=== PATIENT | female | born 1955 | race African-American/Black ===

== ENCOUNTER → 2017-07-03 | Outpatient (CLI) | payer OTHER ==
[~2017-07-03] MED LIST: ACET325S8 PR; ALL220TA PO; PRIL20TA2 PO; TAB-TAB PO
--- NOTE | 2017-07-03 12:16 | RADRPT ---
EXAM DATE/TIME: 07/03/2017 10:46 [place] COMPARISON: No previous studies available for comparison. INDICATIONS : Trouble swallowing dry foods and pill capsules. Sensation of getting stuck then it causes the patient to cough. FLUORO TIME: 2.3 minutes IMAGE COUNT: 5 CONTRAST: Dose as prescribed by speech pathologist. MEDICAL HISTORY : None. SURGICAL HISTORY : None. ENCOUNTER: Initial ACUITY: 2 months PAIN SCORE: 0/10 LOCATION: Bilateral Esophagus FINDINGS: A modified barium swallow was performed with speech pathology. Patient was given a variety of liquids to swallow and a barium pill. The patient initiated swallowing normally and there is coordinated pharyngeal constriction. There ar e prominent anterior osteophytes/paravertebral ossification from C3 down to C7 with the largest osteo phytes C5-7. No evidence of aspiration or laryngeal penetration. There is incomplete emptying of th e esophagus and several episodes of esophago-esophageal reflux are observed. As the various boluses pass by the osteophytes, the patient is aware of fullness. The patient was also observed during swal lowing of a pill. The pill remains in the distal esophagus for approximately 5 seconds before passin g into the stomach. After the pill passes in the stomach, the patient states she felt persistence of the pill. For a full detailed report, see report by the speech pathologist. CONCLUSION: 1. Normal coordination and mechanism of pharyngeal constriction. 2. 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 3. Multiple episodes of esophago-esophageal reflux. Bakari Denson MD on July 03, 2017 at 12:11 Board Certified Radiologist. This report was verified electronically.
== END ==
LOC: HRAD 10:26
PROVIDERS: ATTEND Internal Medicine Gastroenterology
DX: R13.10 Dysphagia, unspecified (principal)
CPT/HCPCS: 74230; 92611; G8996; G8997; G8998